=== PATIENT | female | born 1980 | race African-American/Black ===

== ENCOUNTER 2021-01-09 15:02 | Outpatient (CLI) | payer BC | END 2021-01-09 15:03 | disposition home or self-care (01) | LOC: LAB 15:02 → EDBD 15:02 → LAB 15:03 | PROVIDERS: ATTEND Obstetrics & Gynecology | DX: Z01.419 Encounter for gynecological examination (general) (routine) without abnormal findings (principal) | CPT/HCPCS: 36415 ==

== ENCOUNTER 2021-03-01 14:32 | Outpatient (CLI) | payer BC | END 2021-03-01 14:33 | disposition home or self-care (01) | LOC: LAB 14:32 | PROVIDERS: ATTEND Obstetrics & Gynecology | DX: N97.1 Female infertility of tubal origin (principal) | CPT/HCPCS: 36415; 82670; 83001; 84146; 84443 ==

== ENCOUNTER 2021-04-24 15:42 | Outpatient (CLI) | payer BC | END 2021-04-24 15:43 | disposition home or self-care (01) | LOC: LAB 15:42 | PROVIDERS: ATTEND Obstetrics & Gynecology | DX: E03.9 Hypothyroidism, unspecified (principal); R94.6 Abnormal results of thyroid function studies | CPT/HCPCS: 36415; 84436; 84481 ==

== ENCOUNTER 2021-07-20 11:43 | Outpatient (CLI) | payer BC | END 2021-07-20 11:44 | disposition home or self-care (01) | LOC: SLR 11:43 | PROVIDERS: ATTEND Internal Medicine | DX: G47.30 Sleep apnea, unspecified (principal); E66.9 Obesity, unspecified | CPT/HCPCS: 95810 ==

== ENCOUNTER 2021-07-25 11:00 | Outpatient (CLI) | payer BC | END 2021-07-25 11:01 | disposition home or self-care (01) | LOC: SLR 11:00 | PROVIDERS: ATTEND Internal Medicine | DX: G47.33 Obstructive sleep apnea (adult) (pediatric) (principal); I10 Essential (primary) hypertension | CPT/HCPCS: 95811 ==

== ENCOUNTER 2021-11-07 11:49 | Outpatient (CLI) | payer BC | END 2021-11-07 11:50 | disposition home or self-care (01) | LOC: LAB 11:49 | PROVIDERS: ATTEND Internal Medicine Endocrinology, Diabetes & Metabolism | DX: E03.8 Other specified hypothyroidism (principal) | CPT/HCPCS: 36415; 84439; 84443 ==

== ENCOUNTER 2021-11-19 13:27 | Outpatient (CLI) | payer BC ==
[2021-11-19 14:22] LABS: Basophils % (Auto) 0.5 % (0.0-1.8); Eosinophils # (Auto) 0.2 K/mm3 (0.0-0.4); Eosinophils % (Auto) 2.3 % (0.0-4.3); Hematocrit 35.2 % (30.3-42.9); Hemoglobin 11.3 gm/dl (10.1-14.3); Lymphocytes # (Auto) 2.7 K/mm3 (1.2-5.4); Lymphocytes % (Auto) 37.7 % (13.4-35.0); Mean Corpuscular HGB Conc 32 % (30-34); Mean Corpuscular Volume 79 fl (79-97); Monocytes # (Auto) 0.4 K/mm3 (0.0-0.8); Monocytes % (Auto) 5.4 % (0.0-7.3); Platelet Count 225 K/mm3 (140-440); Red Blood Count 4.43 M/mm3 (3.65-5.03); Red Cell Distribution Width 13.6 % (13.2-15.2)
[2021-11-19 14:39] LABS: Alanine Aminotransferase 14 units/L (7-56); Albumin 3.8 g/dL (3.9-5); Blood Urea Nitrogen 9 mg/dL (7-17); Calcium 8.7 mg/dL (8.4-10.2); Chol/HDL Ratio 4.71 %; HDL Cholesterol 45 mg/dL (40-59); Hemolysis Index 7; LDL Cholesterol,Direct 156 mg/dL (50-130)
[2021-11-19 15:00] LABS: BUN/Creatinine Ratio 13
[2021-11-23 12:00] LABS: Vitamin D, 25-OH, D2 <4 ng/mL
== END 2021-11-19 13:28 | disposition home or self-care (01) ==
LOC: LAB 13:27
PROVIDERS: ATTEND Internal Medicine
DX: Z00.00 Encounter for general adult medical examination without abnormal findings (principal); I10 Essential (primary) hypertension; E78.5 Hyperlipidemia, unspecified; R73.9 Hyperglycemia, unspecified; E03.9 Hypothyroidism, unspecified
CPT/HCPCS: 36415; 80053; 80061; 82306; 83036; 85025

== ENCOUNTER 2021-12-03 10:26 | Outpatient (CLI) | payer BC ==
--- NOTE | 2021-12-03 14:53 | Vascular Lab Report ---
DUPLEX DOPPLER LOWER EXTREMITY VEINS, BILATERAL INDICATION / CLINICAL INFORMATION: R60.9 EDEMA,UNSPECIFIED. TECHNIQUE: Duplex doppler imaging was performed through the veins of both lower extremities using tavares ous compression and other maneuvers. COMPARISON: None available. FINDINGS: RIGHT COMMON FEMORAL VEIN: Negative. RIGHT FEMORAL VEIN: Negative. RIGHT POPLITEAL VEIN: Negative. RIGHT CALF VEINS: Negative. LEFT COMMON FEMORAL VEIN: Negative. LEFT FEMORAL VEIN: Negative. LEFT POPLITEAL VEIN: Negative. LEFT CALF VEINS: Negative. ADDITIONAL FINDINGS: None. IMPRESSION: 1. No sonographic evidence for DVT in either lower extremity. 2. Note is made of mild venous insufficiency within the common femoral veins bilaterally. Scribed by: Kari Quigley RDMS, NAZIAT, STEPHANIE Scribed: 12/03/2021 1:20 PM I have reviewed the images, agree with this report, and edited this report as needed. Signer Name: Farhad Reyna MD Signed: 12/03/2021 2:48 PM Workstation Name: [id number]
== END 2021-12-03 10:27 | disposition home or self-care (01) ==
LOC: VAS 10:26
PROVIDERS: ATTEND Internal Medicine
DX: I83.12 Varicose veins of left lower extremity with inflammation (principal); I83.11 Varicose veins of right lower extremity with inflammation; R60.9 Edema, unspecified
CPT/HCPCS: 93970